=== PATIENT | female | born 1940 | race Caucasian/White ===

== ENCOUNTER 2017-12-16 10:16 | Inpatient (IN) | payer MEDICARE, OTHER ==
[~2017-12-16] VITALS: Ht 144.8 cm; Wt 58.2 kg
[~2017-12-16 10:16] MED LIST: ASPI81 PO; CALC-52 PO; ESOM20CA31 PO; IBAN150T PO; LISI-662 PO; OXYB5 PO
[2017-12-16] MEDS ORDERED: RINGERS SOLUTION,LACTATED 1,000 ML IV ONE ×3 (10:24→12:36)
[2017-12-16] MEDS ORDERED: BUPIVACAINE HCL/PF 0.5% 30 ML VIAL ONE (11:38)
[2017-12-16] MEDS ORDERED: MEPERIDINE-PF 25 MG/ML SYRINGE IVP PRN (13:00)
[2017-12-16] MEDS ORDERED: HYDROmorphone 2 MG/ML SYRINGE IVP PRN (13:00)
[2017-12-16] MEDS ORDERED: FentaNYL CITRATE-PF 100 MCG/2 ML VIAL IVP PRN (13:00)
[2017-12-16] MEDS ORDERED: LIDOCAINE HCL/PF 2% 5 ML VIAL IM ONE (15:39)
[2017-12-16] MEDS ORDERED: NEOSTIGMINE METHYLSULFATE 1 MG/ML 10 ML VIAL IVP ONE (15:39)
[2017-12-16] MEDS ORDERED: EPHEDrine SULFATE 50 MG/ML VIAL IM ONE (15:39)
[2017-12-16] MEDS ORDERED: FentaNYL CITRATE-PF 100 MCG/2 ML VIAL IVP ONE (15:39)
[2017-12-16] MEDS ORDERED: GLYCOPYRROLATE 0.2 MG/ML VIAL IM ONE (15:39)
[2017-12-16] MEDS ORDERED: 0.9% SODIUM CHLORIDE 10 ML VIAL IVP ONE (15:39)
[2017-12-16] MEDS ORDERED: DEXAMETHASONE SOD PHOS 4 MG/ML VIAL IVP ONE (15:39)
[2017-12-16] MEDS ORDERED: ONDANSETRON HCL 4 MG/2 ML VIAL IVP ONE (15:39)
[2017-12-16] MEDS ORDERED: MIDAZOLAM HCL 2 MG/2 ML VIAL IVP ONE (15:39)
== END 2017-12-16 15:40 | disposition home or self-care (01) | DRG 512 ==
LOC: 6N 10:16 → EDSTATUS 12:30 → 4E 13:35
PROVIDERS: ADMIT Orthopaedic Surgery; ATTEND Orthopaedic Surgery
PROC: 0PSK04Z Reposition Right Ulna with Internal Fixation Device, Open Approach (ICD-10-PCS; principal; 2017-12-16 11:45)
DX: S52.021A Displaced fracture of olecranon process without intraarticular extension of right ulna, initial encounter for closed fracture (principal); W18.30XA Fall on same level, unspecified, initial encounter; Y93.89 Activity, other specified; Y92.89 Other specified places as the place of occurrence of the external cause
CPT/HCPCS: 87081; C1713; J0690; J1100; J2250; J2405; J3010; J3490; J7120